=== PATIENT | male | born 1950 | race Caucasian/White ===

== ENCOUNTER → 2021-06-08 14:05 | Outpatient (BNVA) | payer MEDICARE, SELFPAY | PROVIDERS: PCP Internal Medicine; Visit Provider Surgery Vascular Surgery | DX: I65.22 Occlusion and stenosis of left carotid artery (principal) | CPT/HCPCS: 99202 ==

== ENCOUNTER → 2021-06-22 10:13 | Outpatient (BNVA) | payer MEDICARE, SELFPAY | PROVIDERS: PCP Internal Medicine; Visit Provider Internal Medicine | DX: R91.8 Other nonspecific abnormal finding of lung field (principal); F17.200 Nicotine dependence, unspecified, uncomplicated | CPT/HCPCS: 99212 ==

== ENCOUNTER 2022-02-17 10:35 | Outpatient (REF) | payer MEDICARE, SELFPAY ==
--- NOTE | ~2022-02-17 | US_ITS ---
EXAMINATION: US EXTRACRANIAL CAROTID DUPLEX, BILATERAL CLINICAL INFORMATION: Carotid artery stenosis. Occlusion of the left carotid artery. COMPARISON: None TECHNIQUE: Real-time ultrasound and Doppler techniques (integrating B-mode 2-D vascular images, Doppler spectral analysis and color-flow Doppler imaging) were utilized to interrogate the extracranial carotid arteries, the vertebral arteries and proximal subclavian arteries bilaterally. The degree of stenosis is determined by criteria similar to NASCET. FINDINGS: Right Side: 1. There is mild atherosclerotic plaque seen in the bifurcation/proximal ICA region. 2. The common carotid artery PSV proximally is 104 cm/s and distally 76.7 cm/s. 3. The proximal internal carotid artery velocities are 92.2 cm/s systolic and 24.7 cm/s diastolic. 4. The proximal external carotid artery PSV is 144 cm/s. 5. The vertebral artery shows antegrade flow. 6. The subclavian artery waveforms are stenotic, peak systolic velocity 265 cm/s. Left Side: 1. There is mild atherosclerotic plaque seen in the bifurcation/proximal ICA region. 2. The common carotid artery PSV proximally is 104 cm/s and distally 69.8 cm/s. 3. The proximal internal carotid artery velocities are 142 cm/s systolic and 36.8 cm/s diastolic. 4. The proximal external carotid artery PSV is 2:15 cm/s. 5. The vertebral artery shows antegrade flow. 6. The subclavian artery waveforms are normal. US/US carotid duplex BI IMPRESSION: 1. RIGHT: Minimal, non-hemodynamically significant stenosis of the proximal right internal carotid artery corresponding to a 0-49% stenosis by velocity criteria. 2. LEFT: Moderate, hemodynamically significant stenosis of the proximal left internal carotid artery corresponding to a 50-79% stenosis by velocity criteria. 3. Moderate hemodynamically significant stenosis of the right subclavian artery. 4. Moderate hemodynamically significant stenosis of the left external carotid artery.
== END 2022-02-17 10:36 | disposition home or self-care (01) ==
LOC: HO.US 10:35
PROVIDERS: Visit Provider Surgery Vascular Surgery
DX: I65.22 Occlusion and stenosis of left carotid artery (principal)
CPT/HCPCS: 93880

== ENCOUNTER → 2022-04-19 09:55 | Outpatient (BNVA) | payer MEDICARE, SELFPAY | PROVIDERS: PCP Internal Medicine; Visit Provider Surgery Vascular Surgery | DX: I65.22 Occlusion and stenosis of left carotid artery (principal) | CPT/HCPCS: 99212 ==

== ENCOUNTER → 2022-09-14 10:25 | Outpatient (BNVA) | payer MEDICARE, SELFPAY | PROVIDERS: PCP Internal Medicine; Visit Provider Internal Medicine | DX: R91.8 Other nonspecific abnormal finding of lung field (principal); Z87.891 Personal history of nicotine dependence | CPT/HCPCS: 99212 ==

== ENCOUNTER 2025-10-22 11:22 | Outpatient (AMB) | payer MEDICARE, SELFPAY ==
[2025-10-22 11:28] VITALS: BP 130/64; PULSE 93; O2SAT 99; BMI 23.5
--- NOTE | 2025-10-22 11:28 | MHC.OFFVIS ---
Vital Signs 10/22/25 11:28 Height 5 ft 7 in Weight 149 lb 14.629 oz BMI 23.5 BP 130/64 Blood Pressure Location Lt brachial Position Sitting Pulse 93 Pulse Source Pulse Oximeter Pulse Oximetry (%) 99 Oxygen Delivery Method Room Air Intake Visit Reasons: Lung CA screening Intake Note: pt is here as a new patient and states some cough with phlegm. 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 Schulte is a very pleasant 75 years old gentleman. 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 Retired 2 years ago. He has past history of smoking 1 pack of cigarettes a day for 30 years but quit back in 2021. He is very active denies any shortness of breath on exertion, denies chronic cough or expectoration. He does have intermittent cough with some expectoration, usually after having some cold symptoms. The only medicine he takes is rosuvastatin for hyperlipidemia. He has never had the need to use any bronchodilator inhalers. Because of his history of smoking he has been getting annual lung scan at [facility]. His primary care physician Dr. Gibson Gandhi who was affiliated with [facility] is now retired so Mr. Schulte has come here, to be followed for any pulmonary issues ongoing lung screening program. I had seen him in 2021, and basically there has been no change since then. I have report of CT scan of his chest since 2020, which shows a 3 mm pulmonary nodule in the right lung, He say is that he has had a LDCT at [facility] early this year or last year, and we are going to try to get report of that CT scan. FOR[facility]LY [facility], [facility] Medical History History of smoking at least 1 pack per day for at least 30 years Pulmonary nodules Smoker Social History Patient Tobacco Use Status: Former Tobacco user Years Smoked: 40 Review of Systems Const All systems reviewed & are unremarkable except as noted in HPI and below Eyes Reports no additional complaints ENT Reports no additional complaints Card Denies chest pain, Denies irregular heart rhythm and Reports leg edema (MILD ) GI Reports no additional complaints Reports no additional complaints Musc Reports no additional complaints Neuro Reports no additional complaints Psych Reports no additional complaints Physical Exam Vital Signs: Last Vital Signs Pulse 93 10/22/25 11:28 BP 130/64 10/22/25 11:28 Pulse Ox 99 10/22/25 11:28 Oxygen Delivery Method Room Air 10/22/25 11:28 BMI result Body Mass Index 23.5 Const General: comfortable, no acute distress, alert and awake Orientation/consciousness: patient oriented x3 HEENT Head: Yes normal to inspection General nose exam: No nasal polyps present and No nasal discharge present Face and sinus: Yes sinuses nontender Mouth: oropharynx normal Throat: Yes posterior oropharynx normal Eyes General: appearance normal, both eyes and all related structures Neck Neck: Yes normal visual inspection, Yes no lymphadenopathy, Yes trachea midline and Yes no JVD Thyroid: Thyroid normal Chest Chest palpation & inspection: normal inspection of the chest, normal palpation of entire chest wall and no tenderness Resp Effort & Inspection: normal respiratory effort Auscultation: clear to auscultation bilaterally, no crackles, no wheezes and diminished lung sounds (SLIGHTLY DISTANT.) Cardio Palpation: normal PMI Rate: regular rate Rhythm: regular rhythm Heart sounds: no gallops and no murmurs GI Palpation (GI): Soft to palpation, nontender, No hepatosplenomegaly present and no masses Auscultation: normal bowel sounds Back/Spine/Pelvis Thoracic/Lumbar Spine: thoracic and lumbar spine normal to inspection Skin General skin exam: no rashes or lesions noted Neuro General: patient oriented x3 and no focal motor deficits Cranial nerves: Yes CN's II-XII intact bilaterally Extrem General: Yes normal to inspection, Yes no calf tenderness, Yes edema (MILD EDEMA OF LEGS ) and Yes venous stasis dermatitis Psych Appearance: grossly normal and well kempt Speech and movement: Normal speech and movement present Assessment & Plan Assessment & Plan (1) History of smoking at least 1 pack per day for at least 30 years: Comment: LONGSTANDING HISTORY OF SMOKING BUT HE HAS SUCCESSFULLY QUIT SINCE MARCH 2022. Code(s): Z87.891 - Personal history of nicotine dependence Category: Social Hx Plan: Commended for having quit smoking. But he would need to have annual lung screening with LDCT . (2) Pulmonary nodules: Comment: HE HAS HAD MULTIPLE SMALL PULMONARY NODULES . A NODULE 8 MM IN THE LEFT LOWER LOBE HAS ALREADY RESOLVED. PER LAST CT SCAN , 2021 , HE HAS A 3 MM NEW NODULE IN THE RIGHT UPPER LOBE. Code(s): R91.8 - Other nonspecific abnormal finding of lung field Category: Medical Plan: I TOLD HIM THAT THE NODULES THE NODULES HAVE BEEN BENIGN IN NATURE BUT HE SHOULD HAVE ANNUAL LDCT SCAN FOR ABOUT 10 YRS , WHICH WE CAN ARRANGED TO HAVE HERE AT [facility]. I AM REFERRING HIM FOR ANNUAL LUNG SCREENING PROGRAM. Plan WILL DO SPIROMETRY FOR BASELINE TO MAKE SURE HE DOES NOT HAVE ANY SIGNIFICANT OBSTRUCTIVE AIRWAY DISORDER. AND THEN PLAN IS FOR HIM TO COME FOR ANNUAL PULMONARY FOLLOW-UP. Orders: Orders Pulmonary Test/Procedure Today Z87.891 - Personal history of nicotine dependence Referrals Lung Cancer Screening Referral R91.8 - Other nonspecific abnormal finding of lung field, Z87.891 - Personal history of nicotine dependence Coding Level of Care Code Est Pt Level 3 (48085) Diagnoses History of smoking at least 1 pack per day for at least 30 years Z87.891 Pulmonary nodules R91.8
--- OUTSIDE RECORDS SUMMARY | 2025-10-22 13:42 | XMS_ITS | Clinical Summary ---
Author Organization [facility] Address [address] [place] [address] Phone Care Team Providers Care Photographic Processor Name Role Phone Physician, No Pcp Primary Care Provider Unavaila ble Social History Tobacco Use Types Packs/Day Years Used Date Smoking Tobacco: Never Assessed Sex and Gender Information Value Date Recorded Sex Assigned at Male 01/31/2025 1:49 PM EDT Legal Sex Male 2:02 PM EST Gender Identity Male 01/31/2025 1:49 PM EDT Sexual Orientation Not on file Plan of Treatment Health Maintenance Due Date Last Done Comments DTaP,Tdap,and Td Vaccines (1 - Tdap) 1969 Cholesterol Screening (Lipid Panel) 10/19/2022 Falls Risk Assessment 10/19/2022 Hepatitis C Screening 10/19/2022 Medicare Annual Wellness Visit 10/19/2022 Social Influencers of Health Screening 10/19/2022 Pneumococcal Vaccine: 50+ Years (2 of 2 - PCV) 12/17/2022 12/17/2021 Depression Screening 11/20/2024 Zoster Vaccines (2 of 2) 01/13/2025 11/18/2024 COVID-19 Vaccine ( season) 2025 11/18/2024, 09/06/2023, 09/04/2022, Additional history exists Influenza Vaccine (#1) 2025 , 09/06/2023, 12/17/2021, Additional history exists RSV Immunization Adult Patients Completed 09/06/2023 HIB Vaccines Aged Out No longer eligi ble based on patient's age to complete this topic HPV Vaccines Aged Out No longer eligi ble based on patient's age to complete this topic Hepatitis A Vaccines Aged Out No long er eligible based on patient's age to complete this topic Hepatitis B Vaccines Aged Out No long er eligible based on patient's age to complete this topic IPV Vaccines Aged Out No longer eligi ble based on patient's age to complete this topic MMR Vaccines Aged Out No longer eligi ble based on patient's age to complete this topic Meningococcal ACWY Vaccine Aged Out N o longer eligible based on patient's age to complete this topic Meningococcal B Vaccine Aged Out No l onger eligible based on patient's age to complete this topic RSV Immunization Patients Under 20 months Aged Out No longer eligible based on patient's age to complete this topic Varicella Vaccines Aged Out No longer eligible based on patient's age to complete this topic Insurance BLUE [employer] - [place] MEDICARE ADVANTAGE Care Teams Photographic Processor Relationship Specialty Start Date End Date Physician, No Pcp PCP - General 01/31/25
== END 2025-10-22 11:53 | disposition home or self-care (01) ==
LOC: HO.HPS 11:23
PROVIDERS: PCP Internal Medicine; Referring Provider Internal Medicine; Visit Provider Internal Medicine
DX: Z87.891 Personal history of nicotine dependence (principal); R91.8 Other nonspecific abnormal finding of lung field
CPT/HCPCS: 99213

== ENCOUNTER → 2025-10-22 11:22 | Outpatient (BNVA) | payer MEDICARE, SELFPAY | PROVIDERS: PCP Internal Medicine; Referring Provider Internal Medicine; Visit Provider Internal Medicine | DX: R91.8 Other nonspecific abnormal finding of lung field (principal); Z79.899 Other long term (current) drug therapy; Z87.891 Personal history of nicotine dependence | CPT/HCPCS: 99212 ==